=== PATIENT | male | born 1935 | race Caucasian/White ===

== ENCOUNTER 2022-10-13 04:41 | Inpatient (IN) | payer MEDICARE ==
[2022-10-13] MEDS ORDERED: Sodium Chloride 0.9% 10 ML Syringe FLUSH PRN (05:12)
[2022-10-13] MEDS ORDERED: Sodium Chloride 0.9% 1,000 ML IV SCH (05:15)
[2022-10-13 05:42] LABS: ESTIMATED GFR 21 mL/min (>60)
[2022-10-13 06:09] LABS: CORONAVIRUS COVID-19 NAA NEGATIVE (NEGATIVE)
[2022-10-13] MEDS ORDERED: Ondansetron 4 MG Tab.DIS PO PRN (06:48)
[2022-10-13] MEDS ORDERED: Ondansetron 4 MG/2 ML SDV IV PRN (06:48)
[2022-10-13] MEDS ORDERED: Acetaminophen/HYDROcodone 325-5 MG Tab PO PRN (06:48)
[2022-10-13] MEDS ORDERED: Enoxaparin 40 MG/0.4 ML Syringe SUBCUT SCH (09:00)
[2022-10-13] MEDS ORDERED: Magnesium Sulfate/Water 2 GM in Premix Bag 1 BAG IV SCH (09:00)
[2022-10-13] MEDS: Magnesium Oxide 400 MG Tab PO SCH ×2 (10:30→21:00)
[2022-10-13] MEDS ORDERED: Enoxaparin 30 MG/0.3 ML Syringe SUBCUT SCH (13:00)
[2022-10-13] MEDS: Sodium Chloride 0.9% 1,000 ML IV SCH ×2 (13:02→19:43)
[2022-10-13] MEDS: Pantoprazole 40 MG Tab.CR PO SCH (13:41)
[2022-10-13] MEDS: amLODIPine 5 MG Tab PO SCH (13:46)
[2022-10-13] MEDS: Lisinopril 20 MG Tab PO SCH (13:46)
[2022-10-13] MEDS: Folic Acid 1 MG Tab PO SCH (14:52)
[2022-10-13] MEDS: Ferrous Sulfate 325 MG Tab PO SCH (17:52)
[2022-10-13] MEDS: Melatonin 3 MG Tab PO SCH (21:00)
[2022-10-13] MEDS: Acetaminophen 325 MG Tab PO PRN (23:25)
[2022-10-14] MEDS: Sodium Chloride 0.9% 1,000 ML IV SCH ×2 (03:49→12:48)
[2022-10-14] MEDS: Ferrous Sulfate 325 MG Tab PO SCH ×2 (08:57→17:22)
[2022-10-14] MEDS: Folic Acid 1 MG Tab PO SCH (08:57)
[2022-10-14] MEDS: Magnesium Oxide 400 MG Tab PO SCH ×2 (08:58→20:58)
[2022-10-14] MEDS: Pantoprazole 40 MG Tab.CR PO SCH (08:58)
[2022-10-14] MEDS: Enoxaparin 30 MG/0.3 ML Syringe SUBCUT SCH (08:58)
[2022-10-14] MEDS ORDERED: Bisacodyl 5 MG Tab PO ONE ×2 (12:12→20:00)
[2022-10-14] MEDS: Acetaminophen 325 MG Tab PO PRN (13:39)
[2022-10-14] MEDS ORDERED: Polyethylene Glycol 3350 Powder 238 GM Bot PO ONE (17:00)
[2022-10-14] MEDS: Melatonin 3 MG Tab PO SCH (20:58)
[2022-10-15] MEDS: Enoxaparin 30 MG/0.3 ML Syringe SUBCUT SCH (09:12)
[2022-10-15] MEDS: Folic Acid 1 MG Tab PO SCH (10:36)
[2022-10-15] MEDS: Ferrous Sulfate 325 MG Tab PO SCH ×2 (10:36→17:00)
[2022-10-15] MEDS: Magnesium Oxide 400 MG Tab PO SCH ×2 (10:36→21:18)
[2022-10-15] MEDS: Pantoprazole 40 MG Tab.CR PO SCH (10:37)
[2022-10-15] MEDS ORDERED: Propofol 200 MG/20 ML SDV ONE ×2 (11:08→11:45)
[2022-10-15] MEDS: Lisinopril 20 MG Tab PO SCH (13:58)
[2022-10-15] MEDS: amLODIPine 5 MG Tab PO SCH (14:00)
[2022-10-15] MEDS: Nystatin Susp 100,000 Unit/ML 5 ML UD Cup PO SCH ×2 (14:01→21:18)
[2022-10-15] MEDS: Pantoprazole 40 MG Vial IV SCH (14:01)
[2022-10-15] MEDS: Sodium Chloride 0.9% 1,000 ML IV SCH (15:36)
[2022-10-15] MEDS: Acetaminophen 325 MG Tab PO PRN (17:01)
[2022-10-15] MEDS ORDERED: Ketorolac 30 MG/ML SDV IVPUSH ONE (18:19)
[2022-10-15] MEDS: Melatonin 3 MG Tab PO SCH (21:18)
[2022-10-16] MEDS: Pantoprazole 40 MG Vial IV SCH (02:45)
[2022-10-16 04:58] LABS: ESTIMATED GFR 54 mL/min (>60)
[2022-10-16] MEDS ORDERED: Iopamidol 612 MG/ML 30 ML SDV PO ONE (06:00)
[2022-10-16] MEDS ORDERED: Sodium Chloride 0.9% 50 ML IV STA (06:39)
[2022-10-16] MEDS ORDERED: Iopamidol 612 MG/ML 100 ML Bottle IV STA (06:39)
[2022-10-16] MEDS: Folic Acid 1 MG Tab PO SCH (08:18)
[2022-10-16] MEDS: Nystatin Susp 100,000 Unit/ML 5 ML UD Cup PO SCH ×3 (08:18→21:18)
[2022-10-16] MEDS: Ferrous Sulfate 325 MG Tab PO SCH ×2 (08:18→16:52)
[2022-10-16] MEDS: Enoxaparin 40 MG/0.4 ML Syringe SUBCUT SCH (08:18)
[2022-10-16] MEDS: Magnesium Oxide 400 MG Tab PO SCH ×2 (08:18→21:18)
[2022-10-16] MEDS: amLODIPine 5 MG Tab PO SCH (08:19)
[2022-10-16] MEDS: Lisinopril 20 MG Tab PO SCH (08:19)
[2022-10-16] MEDS ORDERED: Magnesium Sulfate/Water 2 GM in Premix Bag 1 BAG IV ONE (09:00)
[2022-10-16] MEDS: Azithromycin 250 MG Tab PO SCH (11:32)
[2022-10-16] MEDS: Pantoprazole 40 MG Tab.CR PO SCH (16:52)
[2022-10-16] MEDS: Melatonin 3 MG Tab PO SCH (21:18)
[2022-10-17 05:25] LABS: ESTIMATED GFR 54 mL/min (>60)
[2022-10-17] MEDS: Pantoprazole 40 MG Tab.CR PO SCH (08:14)
[2022-10-17] MEDS: Magnesium Oxide 400 MG Tab PO SCH (08:14)
[2022-10-17] MEDS: Folic Acid 1 MG Tab PO SCH (08:14)
[2022-10-17] MEDS: Enoxaparin 40 MG/0.4 ML Syringe SUBCUT SCH (08:14)
[2022-10-17] MEDS: Lisinopril 20 MG Tab PO SCH (08:14)
[2022-10-17] MEDS: amLODIPine 5 MG Tab PO SCH (08:14)
[2022-10-17] MEDS: Ferrous Sulfate 325 MG Tab PO SCH (08:14)
[2022-10-17] MEDS: Nystatin Susp 100,000 Unit/ML 5 ML UD Cup PO SCH ×2 (08:14→13:38)
[2022-10-17] MEDS: Azithromycin 250 MG Tab PO SCH (08:15)
[2022-10-17 14:33] VITALS: BP 117/69; PULSE 93
[2022-10-17 16:12] LABS: BASOS 2 % (Not Estab.); EOS 2 % (Not Estab.); HEMATOCRIT 26.8 % (37.5-51.0); HEMOGLOBIN 8.8 g/dL (13.0-17.7); IMMATURE GRANS (ABS) 0.1 x10E3/uL (0.0-0.1); IMMATURE GRANULOCYTES 5 % (Not Estab.); LYMPHS 23 % (Not Estab.); LYMPHS (ABSOLUTE) 0.6 x10E3/uL (0.7-3.1); MCHC 32.8 g/dL (31.5-35.7); MCV 104 fL (79-97); MONOCYTES 16 % (Not Estab.); MONOCYTES(ABSOLUTE) 0.4 x10E3/uL (0.1-0.9); NEUTROPHILS 52 % (Not Estab.); NEUTROPHILS (ABSOLUTE) 1.4 x10E3/uL (1.4-7.0); PLATELETS 177 x10E3/uL (150-450); PLTS Appear normal. (.); RBC 2.59 x10E6/uL (4.14-5.80); RDW 15.8 % (11.6-15.4); WBC 2.6 x10E3/uL (3.4-10.8)
== END 2022-10-17 15:30 | disposition home health service (06) | DRG 811 ==
LOC: JP.ED 04:41 → JP.MS 06:48
PROVIDERS: ADMIT Hospitalist; ATTEND Internal Medicine
PROC: 30233N1 Transfusion of Nonautologous Red Blood Cells into Peripheral Vein, Percutaneous Approach (ICD-10-PCS; principal; 2022-10-13)
PROC: 0DB78ZX Excision of Stomach, Pylorus, Via Natural or Artificial Opening Endoscopic, Diagnostic (ICD-10-PCS; 2022-10-15)
PROC: 0DBL8ZZ Excision of Transverse Colon, Via Natural or Artificial Opening Endoscopic (ICD-10-PCS; 2022-10-15)
DX: D46.9 Myelodysplastic syndrome, unspecified (principal); J18.9 Pneumonia, unspecified organism; R53.1 Weakness; D61.818 Other pancytopenia; D64.9 Anemia, unspecified; N17.9 Acute kidney failure, unspecified; B37.81 Candidal esophagitis; R97.20 Elevated prostate specific antigen [PSA]; N18.32 Chronic kidney disease, stage 3b; I25.10 Atherosclerotic heart disease of native coronary artery without angina pectoris; K29.70 Gastritis, unspecified, without bleeding; K29.80 Duodenitis without bleeding; K63.5 Polyp of colon; Z20.822 Contact with and (suspected) exposure to COVID-19; R63.4 Abnormal weight loss; D53.9 Nutritional anemia, unspecified; E86.0 Dehydration; I73.9 Peripheral vascular disease, unspecified; H54.7 Unspecified visual loss; I25.2 Old myocardial infarction; Z95.5 Presence of coronary angioplasty implant and graft; Z98.49 Cataract extraction status, unspecified eye; Z85.038 Personal history of other malignant neoplasm of large intestine; Z85.46 Personal history of malignant neoplasm of prostate; Z79.82 Long term (current) use of aspirin; Z79.899 Other long term (current) drug therapy; Z86.19 Personal history of other infectious and parasitic diseases; Z87.891 Personal history of nicotine dependence; K44.9 Diaphragmatic hernia without obstruction or gangrene; R63.0 Anorexia; Z68.20 Body mass index [BMI] 20.0-20.9, adult
CPT/HCPCS: 0241U; 36415; 36430; 71046; 71260; 74176; 74177; 80048; 80053; 81001; 82378; 82607; 82728; 82746; 83550; 83615; 83690; 83735; 83880; 84100; 84153; 85018; 85025; 85027; 85060; 86140; 86850; 86900; 86901; 86920; 86922; 87040; 87081; 88305; 97162; 97530; 97535; 96360; 99285-25; A9270-GY; C9113; J1650; J1885; J2704; J3475; J3490; J7030; P9016; Q9967

== ENCOUNTER 2023-12-16 08:06 | Emergency (ER) | payer MEDICARE ==
[2023-12-16 08:14] VITALS: BP 117/52; PULSE 90
== END 2023-12-16 09:30 | disposition home or self-care (01) ==
LOC: JP.ED 08:06
DX: I73.9 Peripheral vascular disease, unspecified (principal); G62.89 Other specified polyneuropathies; I25.10 Atherosclerotic heart disease of native coronary artery without angina pectoris; I25.2 Old myocardial infarction; Z87.891 Personal history of nicotine dependence; Z95.5 Presence of coronary angioplasty implant and graft; Z79.899 Other long term (current) drug therapy; Z79.82 Long term (current) use of aspirin
CPT/HCPCS: 99284

== ENCOUNTER 2024-10-08 13:57 | Inpatient (IN) | payer MEDICARE ==
[2024-10-08 14:33] LABS: BASOPHILS PERCENT AUTO 0.8 % (0.1-1.3); EOSINOPHILS PERCENT AUTO 0.4 % (0.0-5.4); HEMATOCRIT 23.9 % (38.4-49.7); HEMOGLOBIN 7.6 g/dL (12.9-16.9); IMMATURE GRAN ABSOLUTE AUTO 0.09 K/uL (0.00-0.23); IMMATURE GRAN PERCENT AUTO 3.6 % (0.0-0.7); LYMPHOCYTES ABSOLUTE AUTO 0.38 K/uL (0.8-3.3); LYMPHOCYTES PERCENT AUTO 15.1 % (11.4-47.7); MEAN CORPUSCULAR HGB CONC 31.8 g/dL (31.6-35.5); MEAN CORPUSCULAR VOLUME 110.1 fL (81.4-99.0); MONOCYTES ABSOLUTE AUTO 0.56 K/uL (0.20-0.90); MONOCYTES PERCENT AUTO 22.3 % (3.3-12.6); NEUTROPHILS ABSOLUTE AUTO 1.45 K/uL (1.0-7.6); NEUTROPHILS PERCENT AUTO 57.8 % (40.0-78.1); PLATELET COUNT,PLT 165 K/uL (130-375); RED BLOOD CELL COUNT 2.17 M/uL (4.14-5.76); WHITE BLOOD CELL COUNT,WBC 2.5 K/uL (3.2-11.0)
[2024-10-08 14:35] LABS: BASOPHILS ABSOLUTE AUTO 0.02 K/uL (0.00-0.10); EOSINOPHILS ABSOLUTE AUTO 0.01 K/uL (0.00-0.40)
[2024-10-08 14:54] LABS: BLOOD UREA NITROGEN,BUN 28 mg/dL (7-18); CALCIUM 9.5 mg/dL (8.5-10.1); CARBON DIOXIDE,CO2 23 mmol/L (21-32); CHLORIDE,CL 101 mmol/L (100-108); CREATINE KINASE,CK 73 U/L (39-308); CREATININE 1.3 mg/dL (0.8-1.3); ESTIMATED GFR 53 mL/min (>60); GLUCOSE RANDOM 100 mg/dL (74-106); POTASSIUM,K 4.1 mmol/L (3.6-5.2); SODIUM,NA 138 mmol/L (140-148)
[2024-10-08 14:55] LABS: ANION GAP 18.1 mmol/L (5.0-14.0)
[2024-10-08] MEDS ORDERED: Sodium Chloride 0.9% 10 ML Syringe FLUSH PRN (15:14)
[2024-10-08] MEDS: Sodium Chloride 0.9% 500 ML IV ONE (15:56)
[2024-10-08] MEDS ORDERED: LORazepam 2 MG/ML SDV IVPUSH PRN (16:40)
[2024-10-08] MEDS ORDERED: Ondansetron 4 MG Tab.DIS PO PRN (16:40)
[2024-10-08] MEDS ORDERED: Ondansetron 4 MG/2 ML SDV IV PRN (16:40)
[2024-10-08] MEDS ORDERED: Acetaminophen 325 MG Tab PO PRN (16:40)
[2024-10-08] MEDS ORDERED: oxyCODONE 5 MG Tab PO PRN (16:40)
[2024-10-08] MEDS ORDERED: Sennosides/Docusate Sodium 50-8.6 MG Tab PO PRN (16:40)
[2024-10-08] MEDS ORDERED: Magnesium Hydroxide 400 MG/5 ML Susp 30 ML Cup PO PRN (16:40)
[2024-10-08] MEDS ORDERED: Aspirin 81 MG Tab.EC PO PRN (16:58)
[2024-10-08 17:28] LABS: APPEARANCE,URINE CLEAR (CLEAR); BILIRUBIN,URINE NEGATIVE (NEGATIVE); COLOR,URINE YELLOW (YELLOW); GLUCOSE,URINE NEGATIVE (NEGATIVE); KETONES,URINE NEGATIVE (NEGATIVE); LEUKOCYTE ESTERASE,URINE NEGATIVE (NEGATIVE); NITRITE,URINE NEGATIVE (NEGATIVE); OCCULT BLOOD,URINE NEGATIVE (NEGATIVE); PH,URINE 5.5 (5.0-8.0); PROTEIN,URINE NEGATIVE (NEGATIVE); UROBILINOGEN,URINE 0.2 EU/dL (0.2-1.0)
[2024-10-08 18:00] LABS: AMORPHOUS SEDIMENT,URINE NOT SEEN; BACTERIA,URINE FEW; EPITHELIAL CELLS,URINE RARE; MUCUS,URINE NOT SEEN; RBC,URINE NOT SEEN (0-5); WBC,URINE 0-5 (0-5)
[2024-10-08] MEDS: Sodium Chloride 0.9% 1,000 ML IV SCH (18:06)
[2024-10-09 05:50] LABS: HEMATOCRIT 20.1 % (38.4-49.7); MEAN CORPUSCULAR HEMOGLOBIN 35.2 pg (31.6-35.5); MEAN CORPUSCULAR HGB CONC 31.8 g/dL (31.6-35.5); MEAN CORPUSCULAR VOLUME 110.4 fL (81.4-99.0); RED BLOOD CELL COUNT 1.82 M/uL (4.14-5.76); WHITE BLOOD CELL COUNT,WBC 2.2 K/uL (3.2-11.0)
[2024-10-09 05:55] LABS: HEMOGLOBIN 6.4 g/dL (12.9-16.9)
[2024-10-09 06:11] LABS: A/G RATIO 0.6 (1.2-2.2); ALANINE AMINOTRANSFERASE,ALT 13 U/L (12-78); ALBUMIN 2.3 g/dL (3.4-5.0); ALKALINE PHOSPHATASE 73 U/L (46-116); ASPARTATE AMNIOTRANSFERASE,AST 17 U/L (15-37); BILIRUBIN TOTAL 0.7 mg/dL (0.2-1.0); BLOOD UREA NITROGEN,BUN 23 mg/dL (7-18); CALCIUM 8.3 mg/dL (8.5-10.1); CARBON DIOXIDE,CO2 22 mmol/L (21-32); CHLORIDE,CL 104 mmol/L (100-108); CREATININE 1.2 mg/dL (0.8-1.3); EST CRCL DRUG DOSING (CG) 41.17 mL/min; ESTIMATED GFR 58 mL/min (>60); GLUCOSE RANDOM 95 mg/dL (74-106); POTASSIUM,K 4.1 mmol/L (3.6-5.2); PROTEIN TOTAL,TP 6.3 g/dL (6.4-8.2); SODIUM,NA 139 mmol/L (140-148)
[2024-10-09 06:12] LABS: ANION GAP 17.1 mmol/L (5.0-14.0)
[2024-10-09] MEDS: amLODIPine 5 MG Tab PO SCH (08:08)
[2024-10-09] MEDS: Pantoprazole 40 MG Tab.CR PO SCH (08:08)
[2024-10-09 11:36] VITALS: BP 132/62; PULSE 93
[2024-10-12] MEDS ORDERED: FLU (Fluad Triv) TS24-25 (65UP)/MF59C/PF 45 MCG/0.5 ML Syringe IM ONE (09:00)
== END 2024-10-09 15:16 | disposition home or self-care (01) | DRG 684 ==
LOC: JP.ED 13:57 → JP.MS 15:38 → OBSVTOIN 10-09 08:58
PROVIDERS: ADMIT Hospitalist; ATTEND Hospitalist
DX: R29.6 Repeated falls (principal); R53.1 Weakness; D64.9 Anemia, unspecified; N17.9 Acute kidney failure, unspecified; E86.0 Dehydration; Z95.1 Presence of aortocoronary bypass graft; I25.10 Atherosclerotic heart disease of native coronary artery without angina pectoris; I10 Essential (primary) hypertension; I25.2 Old myocardial infarction; D53.9 Nutritional anemia, unspecified; F10.90 Alcohol use, unspecified, uncomplicated; L98.8 Other specified disorders of the skin and subcutaneous tissue; E78.5 Hyperlipidemia, unspecified; F41.9 Anxiety disorder, unspecified; R45.1 Restlessness and agitation; Z95.5 Presence of coronary angioplasty implant and graft; Z98.49 Cataract extraction status, unspecified eye; Z79.82 Long term (current) use of aspirin; Z79.899 Other long term (current) drug therapy; Z98.890 Other specified postprocedural states; Z87.891 Personal history of nicotine dependence
CPT/HCPCS: 36415 ×2; 36430; 72072 ×2; 80048; 80053; 81001; 82550; 85025; 85027; 86850; 86900; 86901; 86920; 86922; A9270 ×2; J7030 ×3; J7040; P9016; 82272; 85018; 97165-GO

== ENCOUNTER 2025-09-17 16:04 | Inpatient (IN) | payer MEDICARE, MEDICAID ==
[2025-09-17 16:51] LABS: BASOPHILS ABSOLUTE AUTO 0.04 K/uL (0.00-0.10); BASOPHILS PERCENT AUTO 1.1 % (0.1-1.3); EOSINOPHILS PERCENT AUTO 0.0 % (0.0-5.4); IMMATURE GRAN ABSOLUTE AUTO 0.04 K/uL (0.00-0.23); IMMATURE GRAN PERCENT AUTO 1.1 % (0.0-0.7); LYMPHOCYTES ABSOLUTE AUTO 0.44 K/uL (0.8-3.3); LYMPHOCYTES PERCENT AUTO 12.2 % (11.4-47.7); MONOCYTES ABSOLUTE AUTO 0.68 K/uL (0.20-0.90); MONOCYTES PERCENT AUTO 18.9 % (3.3-12.6); NEUTROPHILS ABSOLUTE AUTO 2.40 K/uL (1.0-7.6); NEUTROPHILS PERCENT AUTO 66.7 % (40.0-78.1); PLATELET COUNT,PLT 125 K/uL (130-375); RED BLOOD CELL COUNT 2.31 M/uL (4.14-5.76); WHITE BLOOD CELL COUNT,WBC 3.6 K/uL (3.2-11.0)
[2025-09-17] MEDS: Lactated Ringers 1,000 ML IV ONE (16:55)
[2025-09-17 16:59] LABS: EOSINOPHILS ABSOLUTE AUTO 0.00 K/uL (0.00-0.40)
[2025-09-17 17:06] LABS: A/G RATIO 0.7 (1.2-2.2); ALANINE AMINOTRANSFERASE,ALT 9 U/L (12-78); ASPARTATE AMNIOTRANSFERASE,AST 16 U/L (15-37); BILIRUBIN TOTAL 1.0 mg/dL (0.2-1.0); BLOOD UREA NITROGEN,BUN 21 mg/dL (7-18); CARBON DIOXIDE,CO2 23 mmol/L (21-32); CHLORIDE,CL 103 mmol/L (100-108); CREATININE 1.2 mg/dL (0.8-1.3); EST CRCL DRUG DOSING (CG) 40.38 mL/min; ESTIMATED GFR 58 mL/min (>60); GLUCOSE RANDOM 95 mg/dL (74-106); POTASSIUM,K 4.2 mmol/L (3.6-5.2); PROTEIN TOTAL,TP 7.8 g/dL (6.4-8.2); SODIUM,NA 137 mmol/L (140-148); TROPONIN I HIGH SENSITIVITY 9.4 pg/mL (<=60.3)
[2025-09-17 17:50] LABS: APPEARANCE,URINE CLEAR (CLEAR); GLUCOSE,URINE NEGATIVE (NEGATIVE); OCCULT BLOOD,URINE NEGATIVE (NEGATIVE)
[2025-09-17 17:57] LABS: SQUAMOUS EPITHELIAL CELLS,UR NOT SEEN /HPF
[2025-09-17 17:58] LABS: UROTHELIAL CELLS,URINE NOT SEEN /HPF
[2025-09-17] MEDS ORDERED: Ondansetron 4 MG/2 ML SDV IV PRN (21:30)
[2025-09-17] MEDS ORDERED: Ondansetron 4 MG Tab.DIS PO PRN (21:30)
[2025-09-17] MEDS: Lactobacillus Rhamnosus GG (Probiotic) Cap PO SCH (21:45)
[2025-09-18 05:59] LABS: PLATELET COUNT,PLT 116.0 K/uL (130-375); RED BLOOD CELL COUNT 1.98 M/uL (4.14-5.76); WHITE BLOOD CELL COUNT,WBC 4.0 K/uL (3.2-11.0)
[2025-09-18 06:19] LABS: BLOOD UREA NITROGEN,BUN 20.0 mg/dL (7-18); CARBON DIOXIDE,CO2 22.0 mmol/L (21-32); CHLORIDE,CL 104.0 mmol/L (100-108); CREATININE 1.0 mg/dL (0.8-1.3); EST CRCL DRUG DOSING (CG) 48.63 mL/min; ESTIMATED GFR 72.0 mL/min (>60); GLUCOSE RANDOM 92.0 mg/dL (74-106); POTASSIUM,K 4.2 mmol/L (3.6-5.2); SODIUM,NA 137.0 mmol/L (140-148)
[2025-09-18] MEDS ORDERED: Sodium Chloride 0.9% 10 ML Syringe IV PRN (07:21)
[2025-09-19 05:49] LABS: PLATELET COUNT,PLT 125.0 K/uL (130-375); RED BLOOD CELL COUNT 2.07 M/uL (4.14-5.76); WHITE BLOOD CELL COUNT,WBC 3.6 K/uL (3.2-11.0)
[2025-09-19 06:20] LABS: IRON,FE 26 ug/dL (65-175); PERCENT FE SATURATION 12 % (20-55)
[2025-09-19 06:39] LABS: BLOOD UREA NITROGEN,BUN 31.0 mg/dL (7-18); CARBON DIOXIDE,CO2 25.0 mmol/L (21-32); CHLORIDE,CL 105.0 mmol/L (100-108); CREATININE 1.2 mg/dL (0.8-1.3); EST CRCL DRUG DOSING (CG) 39.73 mL/min; ESTIMATED GFR 58.0 mL/min (>60); FOLIC ACID 13.5 ng/ml (8.6-58.9); GLUCOSE RANDOM 103.0 mg/dL (74-106); POTASSIUM,K 4.3 mmol/L (3.6-5.2); SODIUM,NA 139.0 mmol/L (140-148); TSH ULTRASENSITIVE 0.881 uIU/mL (0.358-3.740)
[2025-09-19] MEDS: Multivitamins with Iron/Calcium/Folic Acid/Minerals Tab PO SCH (08:58)
[2025-09-19] MEDS: Cyanocobalamin (Vitamin B12) 1,000 MCG Tab PO SCH (09:03)
[2025-09-19] MEDS: Dimethicone 20%/Zinc Oxide 25% 56 GM Spray Bottle TOP PRN (17:01)
[2025-09-20 05:37] LABS: PLATELET COUNT,PLT 131.0 K/uL (130-375); RED BLOOD CELL COUNT 2.04 M/uL (4.14-5.76); WHITE BLOOD CELL COUNT,WBC 2.5 K/uL (3.2-11.0)
[2025-09-20 05:54] LABS: BLOOD UREA NITROGEN,BUN 33.0 mg/dL (7-18); CARBON DIOXIDE,CO2 24.0 mmol/L (21-32); CHLORIDE,CL 105.0 mmol/L (100-108); CREATININE 1.1 mg/dL (0.8-1.3); EST CRCL DRUG DOSING (CG) 43.34 mL/min; ESTIMATED GFR 64.0 mL/min (>60); GLUCOSE RANDOM 96.0 mg/dL (74-106); POTASSIUM,K 4.6 mmol/L (3.6-5.2); SODIUM,NA 138.0 mmol/L (140-148)
[2025-09-20] MEDS: Sodium Ferric Gluconate Cmplex 250 MG in Sodium Chloride 0.9% 100 ML IV ONE (09:56)
[2025-09-20] MEDS: Sennosides/Docusate Sodium 50-8.6 MG Tab PO PRN (11:50)
[2025-09-21 05:59] LABS: PLATELET COUNT,PLT 152.0 K/uL (130-375); RED BLOOD CELL COUNT 1.97 M/uL (4.14-5.76); WHITE BLOOD CELL COUNT,WBC 1.7 K/uL (3.2-11.0)
[2025-09-21] MEDS: Sodium Ferric Gluconate Cmplex 250 MG in Sodium Chloride 0.9% 100 ML IV ONE (09:50)
[2025-09-21 10:30] VITALS: BP 117/53; PULSE 77
== END 2025-09-21 11:16 | disposition home or self-care (01) | DRG 194 ==
LOC: JP.ED 16:04 → JP.ICU 20:36 → OBSVTOIN 09-18 13:38
PROVIDERS: ADMIT Registered Nurse; ATTEND Hospitalist
DX: J18.9 Pneumonia, unspecified organism (principal); D61.818 Other pancytopenia; Z66 Do not resuscitate; R53.1 Weakness; H54.7 Unspecified visual loss; I25.10 Atherosclerotic heart disease of native coronary artery without angina pectoris; I10 Essential (primary) hypertension; E78.5 Hyperlipidemia, unspecified; G62.9 Polyneuropathy, unspecified; N42.9 Disorder of prostate, unspecified; D64.9 Anemia, unspecified; Z95.5 Presence of coronary angioplasty implant and graft; I25.2 Old myocardial infarction; Z85.46 Personal history of malignant neoplasm of prostate; Z79.899 Other long term (current) drug therapy; Z79.82 Long term (current) use of aspirin; Z85.038 Personal history of other malignant neoplasm of large intestine; Z85.828 Personal history of other malignant neoplasm of skin; Z98.49 Cataract extraction status, unspecified eye; Z98.890 Other specified postprocedural states; Z87.891 Personal history of nicotine dependence
CPT/HCPCS: 36415 ×2; 71045 ×2; 71250; 80048; 80053; 80307; 81001; 82550; 83605; 84484; 85025; 85027; 86140; 87428; 97161; 99285; A9270 ×6; J0696; J1271; J1650; J7120; 82607; 82728; 82746; 83550; 84443; 93010; 96365; 96367; 96372; 97530-GP; 99223; 99232; 99238; G0378; J2916